=== PATIENT | male | born 1995 | race Caucasian/White ===

== ENCOUNTER 2016-12-31 17:05 | Emergency (ER) | payer BC ==
[2016-12-31 17:10] VITALS: RESP 18
--- NOTE | 2016-12-31 18:15 | EDPHY ---
H & P Smoking Status: Never smoked Time Seen by Provider: 12/31/16 18:07 HPI/ROS: CHIEF COMPLAINT: Left lateral ankle pain HISTORY OF PRESENT ILLNESS: 21-year-old male no prior history of ankle injury arrives via private vehicle complaining of acute left lateral ankle injury after he jumped off a small ledge and rolled his foot. No calcaneus pain. No knee pain. No proximal tibia or fibula pain. No back or hip pain. No paresthesia. Unable to bear weight secondary to pain. Intact skin. Occurred earlier today PHYSICAL EXAM (Prior to examination, patient consented to physical exam, hands were washed and my usual and customary physical exam procedures followed) 1) GENERAL: Well-developed, well-nourished, alert and oriented. Appears to be in no acute distress. 2) HEAD: Normocephalic 3) HEENT: Pupils equal, round, reactive to light bilaterally. 4) LUNGS: Breathing comfortably. 5) MUSCULOSKELETAL: Tender to palpation lateral malleolus. proximal tibia and fibula nontender .5th MT nontender negative Yepez test, compartments soft. Calcaneus remainder foot nontender. Knee nontender 6) SKIN: intact 7) VASCULAR: DP,PT pulses and cap refill present and brisk DIFFERENTIAL DIAGNOSIS: in no particular order including but not limited to fracture, sprain, compartment syndrome Procedure: Crutches indications for crutch use discussed with patient. Patient fitted for crutches by ER staff. Observed ambulating with crutches. I think the patient has the capacity to safely use crutches. Usual and customary crutch walking precautions provided Procedure: Splint A Radu boot splint was applied by ER ophthalmology surgical technician. After application of the splint I returned and re-examined the patient. The splint was adequately immobilizing the joint and distal to the splint the patient's circulation and sensation were intact. Patient shows no signs of compartment syndrome. Was given orthopedic precautions. (Margarita Clements) Constitutional: Initial Vital Signs Temperature (C) 37.2 C 12/31/16 17:06 Heart Rate 86 12/31/16 17:06 Respiratory Rate 18 12/31/16 17:06 Blood Pressure 137/92 H 12/31/16 17:06 O2 Sat (%) 97 12/31/16 17:06 O2 Delivery Mode Room Air MDM/Departure - MDM Imaging Results: Imaging Impressions Ankle X-Ray 12/31/16 17:11 Impression: Ankle sprain. Images reviewed by myself (Margarita Clements) ED Course/Re-evaluation: I did not see this patient while he was in the emergency department. However his care was discussed with the PA while the patient was in the department. I agree with treatment plan and management (Amos Shaikh) - Depart Disposition: Home, Routine, Self-Care Clinical Impression: Left ankle sprain Qualifiers: Encounter type: initial encounter Involved ligament of ankle: other ligament Qualified Code(s): S93.492A - Sprain of other ligament of left ankle, initial encounter Condition: Good Instructions: Ankle Sprain (ED) Additional Instructions: Return to the ER immediately if you experience discoloration, have worsening pain, numbness, tingling, or any other symptoms that concern you. If you received x-rays in the emergency department today, be advised, that ligamentous , tendon, muscular, and other non-bony injury cannot be fully ruled out. Try to keep your affected extremity elevated above the level of your chest, and keep cold packs on the affected area, for the next 48 hours. Referrals: Olive Headley MD [Medical Doctor] - 5-7 days, call for appt.
[2016-12-31 18:51] VITALS: BP 128/79; PULSE 81; TEMP 98.6; O2SAT 95
== END 2016-12-31 18:51 | disposition home or self-care (01) ==
DX: S93.492A Sprain of other ligament of left ankle, initial encounter (principal); X58.XXXA Exposure to other specified factors, initial encounter; Y99.8 Other external cause status; Y93.39 Activity, other involving climbing, rappelling and jumping off
CPT/HCPCS: L4386